=== PATIENT | female | born 1985 | race Hispanic/Latino ===

== ENCOUNTER → 2017-11-03 | Outpatient (CLI) | payer OTHER, MEDICAID | END | disposition home or self-care (01) | LOC: SHCH 14:03 | PROVIDERS: ATTEND Internal Medicine Cardiovascular Disease | DX: D68.59 Other primary thrombophilia (principal); K21.9 Gastro-esophageal reflux disease without esophagitis | CPT/HCPCS: 93970 ==

== ENCOUNTER 2019-10-31 18:24 | Inpatient (IN) | payer MEDICAID, OTHER ==
[~2019-10-31] VITALS: Ht 167.6 cm; Wt 86.2 kg
[2019-10-31] MEDS ORDERED: ONDANSETRON HCL 4 MG/2 ML VIAL ONE (19:32)
[2019-10-31] MEDS ORDERED: MORPHINE SULFATE 4 MG/1ML SYG ONE (19:32)
[2019-10-31] MEDS ORDERED: AMPICILLIN SODIUM/SULBACTAM NA 1.5GM VIAL ONE (19:32)
[2019-10-31] MEDS ORDERED: TETANUS/DIPHTHERIA TOXOID [ADULT] 0.5 ML VIAL IM ONE (19:33)
[2019-10-31] MEDS ORDERED: SODIUM CHLORIDE 0.9% 50 ML IV ONE (19:33)
[2019-10-31 19:57] LABS: BASOPHILS % (AUTO) 0.9 % (0.0-5.0); EOSINOPHILS % (AUTO) 4.5 % (0.0-8.0); HEMATOCRIT 37.4 % (36-48); LYMPHOCYTES % (AUTO) 20.4 % (21.0-51.0); MEAN CORPUSCULAR HEMOGLOBIN 28.1 pg (27.0-33.0); MEAN CORPUSCULAR HGB CONC 33.7 g/dL (32.0-36.0); MEAN CORPUSCULAR VOLUME 83.5 fL (79-99); MONOCYTES % (AUTO) 7.3 % (3.0-13.0); NEUTROPHILS % (AUTO) 66.6 % (40.0-77.0); PLATELET COUNT (AUTO) 289 K/uL (130-400); RED BLOOD CELL COUNT(AUTO) 4.48 MIL/uL (4.00-5.50); RED CELL DISTRIBUTION WIDTH 12.8 % (11.0-15.5); WHITE BLOOD COUNT (AUTO) 8.9 K/uL (4.8-10.8)
[2019-10-31 20:07] LABS: CREATININE 0.7 mg/dL (0.5-1.5); POTASSIUM 3.6 mmol/L (3.5-5.1)
[2019-10-31 20:09] LABS: INR 0.97 (0.85-1.15); PARTIAL THROMBOPLASTIN TIME 24.6 SEC (26.3-35.5); PROTHROMBIN TIME 10.5 SEC (9.6-11.6)
--- NOTE | 2019-10-31 22:40 | NUR ---
GWEN FRAZIER GIVEN FREDDIE'S CELL TO CALL DIRECTLY FOR ORDERS.
[2019-10-31] MEDS ORDERED: ACETAMINOPHEN-CODEINE 300/30MG TAB PO PRN (22:45)
[2019-10-31 22:51] VITALS: BP 115/67
--- NOTE | 2019-10-31 22:57 | NUR ---
BAYAT ORDERS T/O GIVEN OVER THE PHONE. ORDERS PLACED INTO [place]. WILL CARRY OUT ORDERS GIVEN.
--- NOTE | 2019-10-31 23:40 | NUR ---
PROCEDURE SCHEDULED AND FAXED TO THE [facility] [employer]. CONSENT FOR PROCEDURE SIGNED AND PLACED IN THE CHART.
--- NOTE | 2019-10-31 23:44 | NUR ---
PICTURE OF WOUNDS TO LEFT UE TAKEN AND PLACED IN CHART.
[2019-10-31] MEDS: CEFAZOLIN SODIUM 1 GM VIAL IVP SCH (23:53)
[2019-11-01] VITALS (22 sets, daily range): BP systolic 75–115; BP diastolic 34–68
[2019-11-01] MEDS: MORPHINE SULFATE 2 MG/ML 1ML SYG IVP PRN ×3 (02:25→16:02)
[2019-11-01] MEDS: CEFAZOLIN SODIUM 1 GM VIAL IVP SCH ×2 (05:48→16:01)
[2019-11-01] MEDS ORDERED: LACTATED RINGERS 1000ML 1,000 ML IV ONE (11:01)
[2019-11-01] MEDS ORDERED: LIDOCAINE PF 2% 5ML ABBOJECT ONE (11:14)
[2019-11-01] MEDS ORDERED: DEXAMETHASONE SOD PHOSPHATE 10MG/ML 1ML VIAL ONE (11:14)
[2019-11-01] MEDS ORDERED: GLYCOPYRROLATE 1 MG/5 ML SYRINGE ONE (11:15)
[2019-11-01] MEDS ORDERED: ROCURONIUM 10MG/1ML SYR 10 MG/ML ML ONE (11:15)
[2019-11-01] MEDS ORDERED: PROPOFOL 10 MG/ML 20ML VIAL IV ONE (11:15)
[2019-11-01] MEDS ORDERED: ONDANSETRON HCL 4 MG/2 ML VIAL ONE (11:15)
[2019-11-01] MEDS ORDERED: MIDAZOLAM HCL 1 MG/ML 2ML VIAL ONE (11:15)
[2019-11-01] MEDS ORDERED: NEOSTIGMINE 5MG/5ML SYR IV ONE (11:15)
[2019-11-01] MEDS ORDERED: FENTANYL CITRATE PF 50 MCG/1 ML 2ML VIAL ONE (11:16)
[2019-11-01] MEDS ORDERED: CEFAZOLIN SODIUM 1 GM VIAL ONE (11:29)
[2019-11-01] MEDS ORDERED: LIDOCAINE HCL 2% JELLY 5 ML ONE (11:33)
[2019-11-01] MEDS ORDERED: KETOROLAC TROMETHAMINE 30MG/ML ONE (12:33)
--- NOTE | 2019-11-01 16:30 | NUR ---
MET W PATIENT /PARTNER POST OP FOR DC PLANNING PATIENT BI, INDEPENDENT AND EMPLOYED, NO DME OR HOME SERVICE, DRIVES; LIVES WITH PARTNER VANGIE VIDAL, WHO WILL PROVIDE TRANSPORT. DCP HOME, NO WOUND CARE ORDERS UNTIL SEEN BY BAYAT. BRYANT TO FOLLOW Addendum: 11/01/19 at 1803 by EMMY MEDINA RN CM Amended: Links added.
== END 2019-11-01 19:45 | disposition home or self-care (01) | DRG 572 ==
LOC: EDH 18:24 → OBSVTOIN 19:00 → EDHIP 19:00 → 3AH 21:34
PROVIDERS: ADMIT Surgery Plastic and Reconstructive Surgery; ATTEND Surgery Plastic and Reconstructive Surgery
PROC: 3E0234Z Introduction of Serum, Toxoid and Vaccine into Muscle, Percutaneous Approach (ICD-10-PCS; 2019-10-31)
PROC: 0JBH0ZZ Excision of Left Lower Arm Subcutaneous Tissue and Fascia, Open Approach (ICD-10-PCS; 2019-11-01)
PROC: 0JBK0ZZ Excision of Left Hand Subcutaneous Tissue and Fascia, Open Approach (ICD-10-PCS; 2019-11-01)
PROC: 0JBK0ZZ Excision of Left Hand Subcutaneous Tissue and Fascia, Open Approach (ICD-10-PCS; principal; 2019-11-01 11:35)
DX: S61.452A Open bite of left hand, initial encounter (principal); S51.852A Open bite of left forearm, initial encounter; W54.0XXA Bitten by dog, initial encounter; Y93.89 Activity, other specified; Y92.89 Other specified places as the place of occurrence of the external cause; Y99.8 Other external cause status; Z23 Encounter for immunization
CPT/HCPCS: 36415; 73090; 73130; 80048; 81025; 85025; 85610; 85730; 90714; A4565; G0378; J0295; J0690; J1100; J1885; J2001; J2250; J2270; J2405; J2704; J2710; J3010; J3490; J7030; J7120

== ENCOUNTER → 2022-02-20 | Emergency (ER) | payer OTHER | END | disposition left against medical advice (07) | LOC: EDH 16:33 | DX: S61.212A Laceration without foreign body of right middle finger without damage to nail, initial encounter (principal); X58.XXXA Exposure to other specified factors, initial encounter; Y93.89 Activity, other specified; Y92.89 Other specified places as the place of occurrence of the external cause; Y99.8 Other external cause status; Z53.21 Procedure and treatment not carried out due to patient leaving prior to being seen by health care provider ==